=== PATIENT | female | born 1970 | race Caucasian/White ===

== ENCOUNTER 2018-12-26 11:42 | Day surgery (SDC) | payer MEDICARE ==
[~2018-12-26 11:42] MED LIST: BACITRACIN ZINC OINTMENT 15 GM ONE; BUPIVACAINE HCL 0.5%/EPI 1:200000 INJ 1.8 ML CARTRIDGE ONE; MINERAL OIL (STERILE) 10 ML VIAL ONE; OXYMETAZOLINE HCL 0.05% NASAL SPRAY 15 ML BOTTLE ONE
[2018-12-26] MEDS ORDERED: ALBUTEROL SULFATE 0.083% NEB 2.5 MG/3 ML AMPUL NEB ONE (12:46)
[2018-12-26] MEDS ORDERED: MIDAZOLAM 2 MG/2 ML INJ ONE (13:40)
[2018-12-26] MEDS ORDERED: FENTANYL CITRATE INJ/PF 100 MCG/2 ML AMPUL ONE ×2 (13:55→14:53)
--- NOTE | 2018-12-27 21:00 | [facility] OPERATIVE REPORT E ---
[facility] Operative Report NAME: DALILA MATAMOROS AGE: 47Y DATE OF SURGERY: 12/26/2018 ROOM: PREOPERATIVE DIAGNOSES: 1. Severe nasal pain. 2. Extruding intranasal suture from a previous nasal surgery. 3. Firm/hard intranasal debris encasing aspects of the extruded suture. 4. Right otorrhea. 5. Right otalgia. 6. Right tympanic membrane perforation. 7. History of right ear surgery. POSTOPERATIVE DIAGNOSES: 1. Severe nasal pain. 2. Extruding intranasal suture from a previous nasal surgery. 3. Firm/hard intranasal debris encasing aspects of the extruded suture. 4. Right otorrhea. 5. Right otalgia. 6. Right tympanic membrane perforation. 7. History of right ear surgery. OPERATION PERFORMED: 1. Exam under anesthesia of the nose with removal of nasoliths and extruded black nylon suture from the nasal septum. 2. Exam under anesthesia of the nose with debridement and rule out of an intranasal abscess process. 3. Exam under anesthesia of the right ear under microscopy under general anesthesia with aural debridement. 4. Right ear application of Gold Dust medicated powder under microscopy. 5. Bilateral transnasal rigid surgical endoscopy. SURGEON: DUNIA OLIVER D.O. ANESTHESIA: General endotracheal tube. ANESTHESIA STAFF: DONNY Nam ESTIMATED BLOOD LOSS: Less than 1 mL. FLUIDS: 500 mL. COMPLICATIONS: None. DRAINS: None. SPONGE COUNT: Verified. MATERIALS FORWARDED SPECIMEN: Intranasal extruded black nylon suture with a right greater than left nasal passage nasolith. FINDINGS: 1. Intranasal evaluation with an extruded black nylon suture standing on both sides of the nasal septum. In each nasal passage there was a nasolith/hard concretion around the extruded suture on the right side greater than the left side. There was no purulence noted on inspection or upon probing of the nasal septum. There was nasal septal deviation involving bone and cartilage present. There were internal and external nasal deformities and turbinate hypertrophy noted. 2. The right ear canal and TM was with cerumen impaction and mucoid material especially surrounding the chronic-appearing right tympanic membrane perforation that was approximately 25% in size. The cerumen was extending into the middle ear space. There was granulation tissue surrounding the margin of the perforation site which was noted after the cerumen was removed. Upon completion of the aural debridement, Gold Dust medicated powder was applied. INDICATIONS: This is a 47-year-old white female patient who was seen and evaluated in the [facility] office. The patient had been referred for, and she complained of severe nasal pain with complaint of an extruding intranasal suture from a previous nasal surgery performed over 20 years ago. The patient has noted worsening nasal pain over the past 6 to 12 months. The patient also complains of right ear pain, recurrent otorrhea, and a right tympanic membrane perforation over the past 4 years. She reports prior history of a right tympanoplasty to repair a previous right eardrum perforation. The patient has recently relocated from the [facility] to [place] in spring. The patient underwent flexible endoscopy which had to be stopped due to patient discomfort. Findings were as noted above. Discussion was also held to perform right ear aural debridement under microscopy in the clinic setting, but the patient declined due to concern for pain. After extensive discussion with the patient, recommendations and plan was made to proceed with exam under anesthesia in the operating room setting of the nose and the ear. Evaluation of the nose was to include nasal debridement, suture removal, and rule out of an intranasal abscess process, and cultures were to be taken. The ear exam under anesthesia was to include aural debridement and placement of medication as indicated. The procedures and all of their risks and complications were all discussed in detail with the patient. She voiced an understanding of the described surgical plan, agreed to proceed, and consent was obtained. PROCEDURE: The patient was taken to the operating room and placed on the operating room table in the supine position. Appropriate monitors were placed. Using mask and IV access, general anesthesia was induced. The patient was transorally intubated without difficulty. The patient next underwent a nasal examination with injection of local anesthetic with epinephrine. The patient underwent bilateral transnasal rigid surgical endoscopy with findings as noted above. The suture was cut on the left side and was then pulled all the way through with suture and concretions/nasolith being sent for pathology evaluation. Prior to any debridement, there were first bilateral intranasal cultures that were obtained. The nasal septum was probed and there were no areas of fluctuance or purulence released. The areas that appeared as fullness were actually deviations of septal cartilage and/or bone. Once the process was complete, there was Bacitracin ointment placed into each nasal passage. At this point attention was turned to the patient's right ear which was examined under microscopy with use of an ear speculum. Cerumen was gently elevated from the EAC and tympanic membrane surface as well as the portion extending into the middle ear space, and it was all removed intact. There was no obvious cerumen/debris remaining in the middle ear space. There was mucoid material that was also suctioned. Granulation tissue that was present around the perforation site margin was with scant bleeding. Once the aural debridement was complete, there was a very limited dusting of Gold Dust medicated powder placed into the right ear. At this point the operating room microscope was withdrawn. The patient was then returned to the anesthesia staff and was allowed to emerge from general anesthesia. The patient was extubated in the main operating room and was then transported to the postanesthesia recovery unit in stable condition. There were no complications. DICTATING PHYSICIAN: DUNIA OLIVER D.O. [id number] PHY#: [id number] ID: [id number] JOB#: [id number] ACCT: [id number] cc:DUNIA OLIVER D.O. >
== END 2018-12-26 15:44 | disposition home or self-care (01) ==
LOC: SC 11:42
PROVIDERS: ATTEND Otolaryngology
DX: J34.89 Other specified disorders of nose and nasal sinuses (principal); H61.21 Impacted cerumen, right ear; H72.91 Unspecified perforation of tympanic membrane, right ear; H71.91 Unspecified cholesteatoma, right ear; I10 Essential (primary) hypertension; T81.30XA Disruption of wound, unspecified, initial encounter; Z98.890 Other specified postprocedural states; H92.01 Otalgia, right ear; J32.9 Chronic sinusitis, unspecified; J34.2 Deviated nasal septum; J34.3 Hypertrophy of nasal turbinates; E04.1 Nontoxic single thyroid nodule; J30.9 Allergic rhinitis, unspecified; H91.90 Unspecified hearing loss, unspecified ear
CPT/HCPCS: 36415; 87070; 87205; 87075; 87077; 86003 ×24; 82785; 00160; 31299; 69205; J2250; J3490 ×3; J3010; A9270; 160; 87186

== ENCOUNTER → 2019-01-10 | Outpatient (CLI) | payer MEDICARE ==
--- NOTE | 2019-01-10 16:15 | RADIOLOGY REPORT (SQ) ---
EXAM DESCRIPTION: U/S THYROID/SFT TISS HD NECK COMPLETED DATE/TIME: 01/10/2019 4:02 pm REASON FOR STUDY: E04.1 NONTOXIC SINGLE THYROID NODULE J32.9 CHRONIC SINUSITIS, UNSPECIFIED E04.1 NONTOXIC SINGLE THYROID NODULE COMPARISON: None. TECHNIQUE: Dynamic and static novak-scale images acquired of the thyroid gland. Selected additional c olor/power Doppler images recorded. All images stored to PACS. LIMITATIONS: None. FINDINGS: RIGHT LOBE: Normal size, 4.2 x 1.7 x 1.1 cm in size. Homogeneous echotexture. No solid m asses. 4 mm well-circumscribed spongiform nodule, wider than tall, smooth margins, no echogenic foci (TI-RADS 1) LEFT LOBE: Normal size, 4 x 1.6 x 1.3 cm in size. Homogeneous echotexture. No cystic or solid eduardo s. ISTHMUS: Normal thickness, 2 mm. Homogeneous echotexture. No cystic or solid masses. OTHER: No other significant finding. IMPRESSION: ESSENTIALLY NORMAL THYROID ULTRASOUND. COMMENT: The [employer] (A[employer]) Thyroid Imaging Reporting And Data System (TI-RADS ) is an ultrasound feature based summed scoring system of risk categorization and management recommen dations for thyroid nodules. TI-RADS assessment categories are as follows: 0 - Incomplete exam: Additional imaging or comparison to prior examinations recommended. 1. - Benign: Fine-needle aspiration or follow-up not routinely recommended in the absence of clinical change. 2. - Not suspicious: Fine-needle aspiration or follow-up not routinely recommended in the absence of clinical change. 3. - Mildly suspicious: Fine-needle aspiration recommended if greater than or equal to 2.5 cm in size . Ultrasound follow-up recommended if greater than or equal to 1.5 cm in size. 4. - Moderately suspicious: Fine-needle aspiration recommended if greater than or equal to 1.5 cm in size. Ultrasound follow-up recommended if greater than or equal to 1.0 cm in size. 5. - Highly suspicious: Fine-needle aspiration recommended if greater than or equal to 1.0 cm in size . Ultrasound follow-up recommended if greater than or equal to 0.5 cm in size. TECHNICAL DOCUMENTATION: JOB ID: [id number] [employer]- All Rights Reserved Reading location - IP/workstation name: [email or web address]
--- NOTE | 2019-01-10 17:01 | RADIOLOGY REPORT (SQ) ---
EXAM DESCRIPTION: CT SINUSES FOR ENT COMPLETED DATE/TIME: 01/10/2019 4:32 pm REASON FOR STUDY: J32.9 CHRONIC SINUSITIS, UNSPECIFIED J32.9 CHRONIC SINUSITIS, UNSPECIFIED E04.1 NONTOXIC SINGLE THYROID NODULE COMPARISON: None. TECHNIQUE: Noncontrast scanning through the paranasal sinuses using bone algorithm. Reconstructed MPR images reviewed. All images stored on PACS. All CT scanners at this facility use dose modulation, iterative reconstruction, and/or weight based d osing when appropriate to reduce radiation dose to as low as reasonably achievable (ALARA). [facility]: Dose Right [facility]: CareDose [facility]: Dose Right [facility]: Teradose 4D [facility]: Vtrim RADIATION DOSE: 46mGy. LIMITATIONS: None. FINDINGS: Right sinuses and drainage pathways: Post-surgical changes: Right sided endoscopic sinus surgery with widening of the ostiomeatal unit, re section of anterior ethmoid septa. There is a radiopaque foreign body in the inferior right frontal sinus and right frontoethmoidal recess on sagittal image 136 and coronal image 94. Frontal sinus: Mucous membrane thickening along the floor of the right frontal sinus and fronto ethm oid recess. Frontoethmoidal Recess: Opacified with mucous membrane thickening. Anterior Ethmoid Sinuses: Post resection of the ethmoid septa with persistent mucous membrane thicke hasmukh along the lateral wall of the anterior ethmoids. Posterior Ethmoid Sinuses: Completely opacified Sphenoid Sinus: Mucous membrane thickening anterior wall Sphenoethmoidal Recess: Completely opacified Maxillary Sinus: Circumferential mucous membrane thickening Ostiomeatal Complex: Surgical widening on coronal images 90-106, with persistent mucous membrane thi ckening occluding outlet. Left Sinuses and Drainage Pathways: Post-Surgical Changes: Surgical widening of the left maxillary sinus outlet and resection of anterio r left ethmoid septa Frontal Sinus: Normal. Frontoethmoidal Recess: Mucous membrane thickening along the fronto ethmoid recess Anterior Ethmoid Sinuses: Persistent mucous membrane thickening along the medial aspect of the commo n anterior ethmoid cavity Posterior Ethmoid Sinuses: Normal. Sphenoid Sinus: Normal. Sphenoethmoidal Recess: Patent on axial image 76 Maxillary Sinus: Normal. Ostiomeatal Complex: Surgical widening of the left ostiomeatal complex. No significant mucous membr ane thickening Right Olfactory Fossa: Normal. Left Olfactory Fossa: Normal. Middle Turbinate Elizabeth Bullosa: No Paradoxical Middle Turbinate: No Atelectatic Uncinated Process: No Frontal Marla Cell Type I: Bilateral. Frontal Marla Cell Type II: On the right on sagittal image 138 and coronal image 77 Interfrontal Sinus Septal Cell: None. Suptra-Orbital Ethmoid: Bilateral. Frontal Bullar Cell: None. Suprabullar Bullar Cell: None. Sphenoethmoidal ([place]) Cell: None. Pneumatization of the Anterior Clinoid Processes: None. Hypoplastic Maxillary Sinus: None. Osteoneogenesis: None. Bone Dehiscence: None. Nasal Cavity: Normal. Nasal Septum: Normal. Anatomic Variants: Right Vidian Canal: Normal Left Vidian Canal: Normal IMPRESSION: Chronic appearing inflammatory changes as above. Postsurgical changes as above TECHNICAL DOCUMENTATION: JOB ID: [id number] Quality ID # 436: Final reports with documentation of one or more dose reduction techniques (e.g., Au tomated exposure control, adjustment of the mA and/or kV according to patient size, use of iterative reconstruction technique) 2010 [employer]- All Rights Reserved Reading location - IP/workstation name: [email or web address]
== END ==
LOC: RAD 15:34
PROVIDERS: ATTEND Otolaryngology
DX: J32.9 Chronic sinusitis, unspecified (principal); E04.1 Nontoxic single thyroid nodule
CPT/HCPCS: 70486; 76536

== ENCOUNTER → 2019-03-27 | Outpatient (CLI) | payer MEDICARE, MEDICAID ==
[2019-03-27 08:53] LABS: ALBUMIN 4.4 g/dL (3.5-5.0); ALKALINE PHOSPHATASE 138 U/L (38-126); ASPARTATE AMINO TRANSFERASE 26 U/L (14-36); BILIRUBIN,DIRECT 0.1 mg/dL (0.0-0.4); BILIRUBIN,TOTAL 0.6 mg/dL (0.2-1.3); TOTAL PROTEIN 7.5 g/dL (6.3-8.2)
== END ==
LOC: LAB 07:52
PROVIDERS: ATTEND Internal Medicine Gastroenterology
DX: R10.13 Epigastric pain (principal)
CPT/HCPCS: 36415; 80076; 83690

== ENCOUNTER → 2019-03-27 | Outpatient (CLI) | payer MEDICARE, MEDICAID ==
--- NOTE | 2019-03-27 09:34 | WOMENS IMAGING REPORT ---
EXAM DESCRIPTION: U/S ABDOMEN LIMITED COMPLETED DATE/TIME: 03/27/2019 9:15 am REASON FOR STUDY: R10.13 EPIGASTRIC PAIN R10.13 EPIGASTRIC PAIN COMPARISON: None. TECHNIQUE: Dynamic and static grayscale images acquired of the abdomen and recorded on PACS. Additio nal selected color Doppler and spectral images recorded. LIMITATIONS: None. FINDINGS: PANCREAS: The head of the pancreas is of normal echogenicity. The body and tail are obsc ured by overlying bowel gas. LIVER: Mildly fatty liver. The liver measures 15.0 cm in length, normal size. LIVER VASCULATURE: Normal directional flow of the main portal vein and hepatic veins. GALLBLADDER: Prior cholecystectomy. ULTRASOUND-DETECTED RICHEY'S SIGN: Negative. INTRAHEPATIC DUCTS AND COMMON DUCT: CBD measures 4.8 mm in diameter, normal. The intrahepatic ducts normal caliber. No filling defects. INFERIOR VENA CAVA: Suboptimal visualization due to overlying bowel gas. AORTA: The proximal segment is patent. The mid and distal segments are obscured by overlying bowel gas. RIGHT KIDNEY: The right kidney measures 11.0 x 4.3 x 4.8 cm, normal size. Normal echogenicity. No so lid or suspicious masses. No hydronephrosis. No calcifications. PERITONEAL AND RIGHT PLEURAL SPACE: No ascites or effusions. OTHER: No other significant findings. IMPRESSION: 1. Prior cholecystectomy. 2. Suboptimal visualization of the abdominal aorta, inferior vena cava and body and tail of the panc reas due to overlying bowel gas. 3. Mild fatty liver. TECHNICAL DOCUMENTATION: JOB ID: [id number] [employer]- All Rights Reserved Reading location - IP/workstation name: [email or web address]
== END ==
LOC: WI 08:20
PROVIDERS: ATTEND Internal Medicine Gastroenterology
DX: R10.13 Epigastric pain (principal)
CPT/HCPCS: 76705

== ENCOUNTER → 2019-05-25 | Outpatient (CLI) | payer MEDICARE, MEDICAID ==
--- NOTE | 2019-05-25 14:07 | RADIOLOGY REPORT (SQ) ---
EXAM DESCRIPTION: CT ABD/PELVIS WITH IV ORAL COMPLETED DATE/TIME: 05/25/2019 10:24 am REASON FOR STUDY: LEFT UPPER QUADRANT PAIN,OTH ABDOMINAL HERNIA WITH R10.12 LEFT UPPER QUADRANT ROYAL N K45.8 OTH ABDOMINAL HERNIA WITHOUT OBSTRUCTION OR GANGRENE COMPARISON: None. TECHNIQUE: CT scan of the abdomen and pelvis performed with intravenous and oral contrast using nabil abigail scanning technique with dynamic intravenous contrast injection. Images reviewed with lung, soft t issue, and bone windows. Reconstructed coronal and sagittal MPR images reviewed. Delayed images for e valuation of the urinary system also acquired. All images stored on PACS. All CT scanners at this facility use dose modulation, iterative reconstruction, and/or weight based d osing when appropriate to reduce radiation dose to as low as reasonably achievable (ALARA). [facility]: Dose Right [facility]: CareDose [facility]: Dose Right [facility]: Teradose 4D [facility]: Provenance CONTRAST TYPE AND DOSE: contrast/concentration: Isovue 350.00 mg/ml; Total Contrast Delivered: 78.0 ml; Total Saline Delivered: 67.0 ml RENAL FUNCTION: None required. The patient is less than 50 years old. RADIATION DOSE: CT Rad equipment meets quality standard of care and radiation dose reduction techniq ues were employed. CTDIvol: 7.3 - 7.4 mGy. DLP: 735 mGy-cm. . LIMITATIONS: Artifact from lower lumbar fusion. FINDINGS: LOWER CHEST: Small hiatal hernia. LIVER: Normal size. No masses. No dilated ducts. SPLEEN: Normal size. No focal lesions. PANCREAS: No masses. No significant calcifications. No adjacent inflammation or peripancreatic fluid collections. Pancreatic duct not dilated. GALLBLADDER: Surgically absent. ADRENAL GLANDS: No significant masses or asymmetry. RIGHT KIDNEY AND URETER: No solid masses. No significant calcifications. No hydronephrosis or hyd roureter. LEFT KIDNEY AND URETER: No solid masses. No significant calcifications. No hydronephrosis or hydr oureter. AORTA AND VESSELS: No aneurysm. No dissection. Renal arteries, SMA, celiac without stenosis. RETROPERITONEUM: No retroperitoneal adenopathy, hemorrhage or masses. BOWEL AND PERITONEAL CAVITY: No obstruction. No visualized masses. No free fluid. No inflammatory ch anges or thickening of bowel wall. APPENDIX: Not visualized. PELVIS: No significant masses. Normal bladder. No free fluid. ABDOMINAL WALL: No masses. No hernias. BONES: Scoliosis. Prior lower lumbar posterior decompression and fusion. OTHER: No other significant finding. IMPRESSION: No acute findings in the abdomen or pelvis. TECHNICAL DOCUMENTATION: JOB ID: [id number] Quality ID # 436: Final reports with documentation of one or more dose reduction techniques (e.g., Au tomated exposure control, adjustment of the mA and/or kV according to patient size, use of iterative reconstruction technique) 2010 [employer]- All Rights Reserved Reading location - IP/workstation name: [email or web address]
== END ==
LOC: RAD 09:53
PROVIDERS: ATTEND Internal Medicine Gastroenterology
DX: K45.8 Other specified abdominal hernia without obstruction or gangrene (principal); R10.12 Left upper quadrant pain
CPT/HCPCS: 74177; 82565

== ENCOUNTER → 2020-03-13 | Day surgery (SDC) | payer MEDICARE, MEDICAID ==
[~2020-03-13] MED LIST changes: +BACITRACIN INJ 50,000 UNIT VIAL ONE; -BACITRACIN ZINC OINTMENT 15 GM ONE; +BUPIVACAINE HCL 0.5 % INJ/PF 30 ML SDV ONE; -BUPIVACAINE HCL 0.5%/EPI 1:200000 INJ 1.8 ML CARTRIDGE ONE; +BUPIVACAINE INJ/PF LIPOSOME/PF 266 MG/20 ML SDV ONE; +CEFAZOLIN 1 GM/D5W RTU 1 GM/50 ML RTUPB IV PRN; +FENTANYL CITRATE INJ/PF 100 MCG/2 ML AMPUL ONE; +LIDOCAINE 2% INJ (20 MG/ML) 20 ML MDV ONE; +LIDOCAINE 2% INJ-PF (20 MG/ML) 10 ML AMPUL ONE; +MIDAZOLAM 2 MG/2 ML INJ ONE; -MINERAL OIL (STERILE) 10 ML VIAL ONE; +NORMAL SALINE INJ/PF 0.9% 10 ML SDV ONE; -OXYMETAZOLINE HCL 0.05% NASAL SPRAY 15 ML BOTTLE ONE; +POLYMYXIN B SULFATE INJ 500000 UNIT VIAL ONE; +PROPOFOL INJ 200 MG/20 ML VIAL IV ONE
[2020-03-13] MEDS: DEXAMETHASONE SOD PHOSPHATE INJ 4 MG/1 ML VIAL ONE ×2 (09:25)
--- NOTE | 2020-03-13 12:10 | Operative Report ---
Operative Report DATE OF SURGERY: 03/13/20 PREOPERATIVE DIAGNOSIS: Painful first metatarsophalangeal joint left foot. POSTOPERATIVE DIAGNOSIS: Same. OPERATION: Removal of deep hardware. Cheilectomy first metatarsophalangeal joint. All left foot. SURGEON: KATELYNN CHEN GAS METER READER: ANDREW SINHA ANESTHESIA: LMAC COMPLICATIONS: None. ESTIMATED BLOOD LOSS: Us then 1.0 mL. PROCEDURE: On 03/13/2020 patient was ministered to care with complaint of a painful left foot patient was taken the operating will follow procedure form. Removal of deep buried hardware and cheilectomy of first metatarsophalangeal joint left foot. Following intravenous sedation and regional local anesthesia on the left foot was then prepped and draped in usual sterile manner. Tourniquet is placed proximal to the ankle malleoli. Esmarch was applied to left foot tourniquet was inflated to level of 250 mmHg, sterile drape was completed, and the following procedure form. Attention was directed to the medial aspect of the first metatarsophalangeal joint left foot, where there is a previous scar from a prior bunionectomy. Incision made into the scar following along its course on the medial aspect and approximately 5 cm in length. Was deepened through the subcutaneous tissue and superficial fascia until the medial capsule of first metatarsophalangeal joint was exposed. Incision was made in the capsular and periosteal structures in a similar fashion as original skin incision. The capsule was retracted dorsally and plantarly for preservation. The prominent and protruding screw was identified in the medial plantar base of the proximal phalanx and was removed in toto. The dorsal aspect the first metatarsal head was osteotomized removing a prominent portion of bone, and likewise the medial aspect first metatarsal shaft was also osteotomized removing hypertrophied bone. Utilizing power rasp all sharp osseous edges were smooth. The articular surfaces were examined thoroughly there was noted to be some thinning of the articular cartilage on the first metatarsal head. It is felt that the procedure was completed and the area was then flushed with copious amounts of sterile antibiotic solution and inspected for soft tissue or osseous debris with none being noted. Bone wax was applied to all freshly cut bony surfaces. The capsular periosteal structures were coapted and maintained with simple suture of 3-0 Vicryl. At that time was felt that there is some contracture of the long extensor tendon and it was displaced and the more lateral position. Utilizing blunt dissection the long extensor tendon was freed from its surrounding soft tissues attachments. Utilizing a 15 blade, six partial thickness cuts were placed in the long extensor tendon over the course of approximately 3 cm to help relieve some of the tension on the long extensor tendon. The tendon sheath was then sutured to the medial capsule, realigning the tendon in a more midline position over the metatarsal. The forefoot was loaded and the hallux was noted to be in excellent position. Throughout the procedure fluoroscopic studies were obtained, final study revealed adequate removal of of bone and alignment of the first metatarsophalangeal joint. At that time the subcutaneous tissue was coapted and maintained with simple suture of 4-0 Vicryl. Exparel was then injected subcutaneously in the periwound area. The skin incision coapted maintained with interrupted horizontal mattress suture of 5-0 nylon. Sterile dressings of Sadi silk, 4 x 4's, Ki, Kerlix and Coflex was applied to the patient's left foot, tourniquet is rapidly deflated, capillary filling time was instantaneous to all digits. Patient appeared to tolerate surgery anesthesia well was taken recovery further monitored by anesthesia department.
--- NOTE | 2020-03-13 17:04 | RADIOLOGY REPORT (SQ) ---
EXAM DESCRIPTION: TOE LEFT; NO CHG FLUORO IMAGES COMPLETED DATE/TIME: 03/13/2020 11:19 am REASON FOR STUDY: SCREW REMOVAL AND BONE REMODEL IST LEFT TOE ASSISTED WITH FLUORO IN OR M79.672 PA IN IN LEFT FOOT COMPARISON: None. FLUOROSCOPY TIME: 9 seconds. 2 images saved to PACS. TECHNIQUE: Intra-operative images acquired during surgical procedure to evaluate progress. NUMBER OF IMAGES: 2 images. LIMITATIONS: None. FINDINGS: Images of the toe acquired during the surgical procedure. IMPRESSION: IMAGE(S) OBTAINED DURING PROCEDURE. COMMENT: Quality ID 145: Final reports for procedures using fluoroscopy that document radiation exp osure indices, or exposure time and number of fluorographic images (if radiation exposure indices are not available) Please consult full operative report of the attending physician for description of the procedure. TECHNICAL DOCUMENTATION: JOB ID: [id number] 2010 [employer]- All Rights Reserved Reading location - IP/workstation name: [email or web address]
--- NOTE | 2020-03-13 17:04 | RADIOLOGY REPORT (SQ) ---
EXAM DESCRIPTION: TOE LEFT; NO CHG FLUORO IMAGES COMPLETED DATE/TIME: 03/13/2020 11:19 am REASON FOR STUDY: SCREW REMOVAL AND BONE REMODEL IST LEFT TOE ASSISTED WITH FLUORO IN OR M79.672 PA IN IN LEFT FOOT COMPARISON: None. FLUOROSCOPY TIME: 9 seconds. 2 images saved to PACS. TECHNIQUE: Intra-operative images acquired during surgical procedure to evaluate progress. NUMBER OF IMAGES: 2 images. LIMITATIONS: None. FINDINGS: Images of the toe acquired during the surgical procedure. IMPRESSION: IMAGE(S) OBTAINED DURING PROCEDURE. COMMENT: Quality ID 145: Final reports for procedures using fluoroscopy that document radiation exp osure indices, or exposure time and number of fluorographic images (if radiation exposure indices are not available) Please consult full operative report of the attending physician for description of the procedure. TECHNICAL DOCUMENTATION: JOB ID: [id number] 2010 [employer]- All Rights Reserved Reading location - IP/workstation name: [email or web address]
== END ==
LOC: SC 06:25
PROVIDERS: ATTEND Preventive Medicine Undersea and Hyperbaric Medicine
DX: M25.572 Pain in left ankle and joints of left foot (principal); F17.210 Nicotine dependence, cigarettes, uncomplicated; Z03.818 Encounter for observation for suspected exposure to other biological agents ruled out
CPT/HCPCS: 73660; 20680; 28288; U0003; J2250; J3490 ×6; J0690; J1100; J3010; J2704; C9290; C9803; 87635